=== PATIENT | male | born 1960 | race Caucasian/White ===

== ENCOUNTER 2018-08-15 09:30 | Day surgery (SDC) | payer BC ==
[~2018-08-15 09:30] MED LIST: CEFAZOLIN 2 GM/50 ML (PMX) 50 ML IVPB
[2018-08-15] MEDS: ACETAMINOPHEN 500 MG TAB PO (10:10)
[2018-08-15] MEDS ORDERED: METOCLOPRAMIDE 10 MG INJ IV (11:00)
[2018-08-15] MEDS ORDERED: KETOROLAC 15 MG INJ IV (11:00)
[2018-08-15] MEDS ORDERED: ONDANSETRON 4 MG INJ IV (11:00)
[2018-08-15] MEDS ORDERED: ALBUTEROL 0.083% (NEB) 2.5 MG/3 ML AMP HHN (11:00)
[2018-08-15] MEDS ORDERED: BUPIVACAINE 0.25% (MPF) 30 ML INJ (11:03)
[2018-08-15] MEDS ORDERED: LIDOCAINE 1% (MPF) 30 ML INJ (11:03)
[2018-08-15] MEDS ORDERED: KETOROLAC 30 MG INJ (11:18)
[2018-08-15] MEDS: LIDOCAINE 1% (MPF) 30 ML INJ INJ (11:25)
[2018-08-15] MEDS: BUPIVACAINE 0.25% (MPF) 30 ML INJ INJ (11:25)
== END 2018-08-15 12:48 | disposition home or self-care (01) ==
LOC: SDS 09:30
DX: S60.352A Superficial foreign body of left thumb, initial encounter (principal); X58.XXXA Exposure to other specified factors, initial encounter; Y93.89 Activity, other specified; Y92.89 Other specified places as the place of occurrence of the external cause; Y99.8 Other external cause status; E78.5 Hyperlipidemia, unspecified; Z87.891 Personal history of nicotine dependence; J44.9 Chronic obstructive pulmonary disease, unspecified
CPT/HCPCS: 20520; 88300